=== PATIENT | female | born 1990 | race African-American/Black ===

== ENCOUNTER 2016-08-19 11:28 | Emergency (ER) | payer BC, MEDICAID ==
[~2016-08-19] VITALS: Ht 165.1 cm; Wt 80.7 kg
[~2016-08-19 11:28] MED LIST: ALBUTEROL2.5 MG/3 M INH; AUGMENTIN 875-1 EAC1 ORAL; CEPHALEXIN250 MG PO; CYCLOBENZAPRINE10 MG ORAL; FERROUS SULFAT325 MG ORAL; IBUPROFEN600 MG ORAL; KEFLEX500 MG ORAL; MECLIZINE HCL25 MG ORAL; METRONIDAZOLE500 MG ORAL; NAPROSYN500 M1 ORAL; NKM; PRENA1 PEARL S1 EACH PO; ROBITUSSIN COU118 M4 PO
[2016-08-19 12:09] VITALS: BP 112/72
[2016-08-19] MEDS ORDERED: Metoclopramide 10mg/2ml Inj IVP ONE (12:15)
[2016-08-19 12:44] LABS: APPEARANCE,URINE CLEAR; KETONES,URINE NEGATIVE (NEGATIVE); LEUKOCYTE ESTERASE ,URINE 1+ (NEGATIVE); NITRITE,URINE NEGATIVE (NEGATIVE); PH,URINE 7 (4.5-8.0); PROTEIN,URINE NEGATIVE (NEGATIVE); UROBILINOGEN,URINE NORMAL MG/DL (0.0-1.0)
[2016-08-19 12:47] LABS: BASOPHILS % (AUTO) 1.1 % (0.0-2.0); EOSINOPHILS % (AUTO) 0.9 % (0.0-3.0); LYMPHOCYTES % (AUTO) 33.9 % (20.0-45.0); MEAN CORPUSCULAR HEMOGLOBIN 29.2 PG (27.0-31.0); MEAN CORPUSCULAR HGB CONC 33.3 G/DL (32.0-36.0); MEAN CORPUSCULAR VOLUME 88 FL (80-99); MEAN PLATELET VOLUME 12.3 FL (6.5-10.1); MONOCYTES % (AUTO) 9.1 % (1.0-10.0); PLATELET COUNT 196 K/UL (150-450); RED BLOOD COUNT 5.01 M/UL (4.20-5.40); RED CELL DISTRIBUTION WIDTH 11.8 % (11.6-14.8); WHITE BLOOD COUNT 6.1 K/UL (4.8-10.8)
[2016-08-19 12:52] LABS: BACTERIA,URINE FEW /HPF; SQUAMOUS EPITHELIAL CELL,UR FEW /LPF (NONE/OCC)
[2016-08-19 12:57] VITALS: BP 112/72
[2016-08-19 13:02] LABS: ALANINE AMINOTRANSFERASE 15 U/L (3-33); ALBUMIN/GLOBULIN RATIO 1.2 (1.0-2.7); ANION GAP 14 (5-15); ASPARTATE AMINO TRANSFERASE 18 U/L (5-40); CALCIUM 9.8 mg/dL (8.6-10.2); CARBON DIOXIDE 27 mEQ/L (20-30); CHLORIDE 98 mEQ/L (98-107); CREATININE 0.9 mg/dL (0.5-0.9); GLOMERULAR FILTRATION RATE > 60 mL/min (>60); HEMOLYSIS 14; POTASSIUM 3.8 mEQ/L (3.4-4.9); SODIUM 139 mEQ/L (135-145); TOTAL PROTEIN 7.5 g/dL (6.6-8.7)
--- NOTE | 2016-08-19 13:52 | Emergency Room Report ---
History of Present Illness General Chief Complaint: Nausea Source: Patient Present Illness HPI 26-year-old female presents ED. States for one week she's been feeling dizzy and lightheaded with nausea and vomiting. Denies any headache. Denies any fevers or chills. Denies any dysuria or hematuria. Patient notes history of vertigo but denies any room spinning sensation at this time. No aggravating relieving factors. Denies any other associated symptoms Allergies: Coded Allergies: No Known Allergies (Unverified , 05/26/16) Patient History Past Medical History: asthma Past Surgical History: none Pertinent Family History: none Social History: Denies: alcohol use, drug use, smoking Now: No Immunizations: UTD Reviewed Nursing Documentation: PMH: Agreed, PSxH: Agreed Nursing Documentation-PMH Hx Asthma: Yes Review of Systems All Other Systems: negative except mentioned in HPI Physical Exam Vital Signs Date Time Temp Pulse Resp B/P Pulse Ox O2 Delivery O2 Flow Rate FiO2 08/19/16 12:08 97.7 65 20 112/72 98 Room Air Sp02 EP Interpretation: reviewed, normal General Appearance: no apparent distress, alert, GCS 15, non-toxic Head: normocephalic, atraumatic Eyes: bilateral eye PERRL, bilateral eye normal inspection ENT: hearing grossly normal, normal pharynx, no angioedema, normal voice Neck: full range of motion, supple/symm/no masses Respiratory: chest non-tender, lungs clear, normal breath sounds, speaking full sentences Cardiovascular #1: regular rate, rhythm, no edema Cardiovascular #2: 2+ carotid (R), 2+ carotid (L), 2+ radial (R), 2+ radial (L) , 2+ dorsalis pedis (R), 2+ dorsalis pedis (L) Gastrointestinal: normal bowel sounds, non tender, soft, non-distended, no guarding, no rebound Rectal: deferred Genitourinary: normal inspection, no CVA tenderness Musculoskeletal: back normal, gait/station normal, normal range of motion, non- tender Neurologic: alert, oriented x3, responsive, motor strength/tone normal, sensory intact, speech normal Psychiatric: judgement/insight normal, memory normal, mood/affect normal, no suicidal/homicidal ideation Reflexes: 3+ bicep (R), 3+ bicep (L), 3+ tricep (R), 3+ tricep (L), 3+ knee (R) , 3+ knee (L) Skin: normal color, no rash, warm/dry, well hydrated Lymphatic: no adenopathy Medical Decision Making Diagnostic Impression: Primary Impression: Dizziness ER Course Hospital Course 26-year-old female presents ED complaining of dizziness and nausea times one week Differential diagnoses include: tension headache, migraine, dehydration, UTI Clinical course Patient placed on stretcher. After initial history and physical I ordered labs , IV fluids, Reglan, tylenol Before workup could be completed, patient pulled out IV and left. Stating that she needed to take her daughter home was with her at bedside. Labs-no leukocytosis, hemoglobin/hematocrit stable, electrolytes okay, UA negative Diagnosis- dizziness patient eloped from ER Labs Test 08/19/16 11:10 08/19/16 11:15 Urine Color Pale yellow Urine Appearance Clear Urine pH 7 (4.5-8.0) Urine Specific [place] 1.010 (1.005-1.035) Urine Protein Negative (NEGATIVE) Urine Glucose (UA) Negative (NEGATIVE) Urine Ketones Negative (NEGATIVE) Urine Occult Blood 4+ (NEGATIVE) Urine Nitrite Negative (NEGATIVE) Urine Bilirubin Negative (NEGATIVE) Urine Urobilinogen Normal MG/DL (0.0-1.0) Urine Leukocyte Esterase 1+ (NEGATIVE) Urine RBC 5-10 /HPF (0 - 2) Urine WBC 2-4 /HPF (0 - 2) Urine Squamous Epithelial Cells Few /LPF (NONE/OCC) Urine Bacteria Few /HPF (NONE) Urine HCG, Qualitative Negative White Blood Count 6.1 K/UL (4.8-10.8) Red Blood Count 5.01 M/UL (4.20-5.40) Hemoglobin 14.6 G/DL (12.0-16.0) Hematocrit 43.8 % (37.0-47.0) Mean Corpuscular Volume 88 FL (80-99) Mean Corpuscular Hemoglobin 29.2 PG (27.0-31.0) Mean Corpuscular Hemoglobin Concent 33.3 G/DL (32.0-36.0) Red Cell Distribution Width 11.8 % (11.6-14.8) Platelet Count 196 K/UL (150-450) Mean Platelet Volume 12.3 FL (6.5-10.1) Neutrophils (%) (Auto) 55.0 % (45.0-75.0) Lymphocytes (%) (Auto) 33.9 % (20.0-45.0) Monocytes (%) (Auto) 9.1 % (1.0-10.0) Eosinophils (%) (Auto) 0.9 % (0.0-3.0) Basophils (%) (Auto) 1.1 % (0.0-2.0) Sodium Level 139 mEQ/L (135-145) Potassium Level 3.8 mEQ/L (3.4-4.9) Chloride Level 98 mEQ/L (98-107) Carbon Dioxide Level 27 mEQ/L (20-30) Anion Gap 14 (5-15) Blood Urea Nitrogen 11 mg/dL (7-23) Creatinine 0.9 mg/dL (0.5-0.9) Estimat Glomerular Filtration Rate > 60 mL/min (>60) Glucose Level 93 mg/dL (74-106) Calcium Level 9.8 mg/dL (8.6-10.2) Total Bilirubin 0.2 mg/dL (0.0-1.2) Aspartate Amino Transf (AST/SGOT) 18 U/L (5-40) Alanine Aminotransferase (ALT/SGPT) 15 U/L (3-33) Alkaline Phosphatase 85 U/L (35-104) Total Protein 7.5 g/dL (6.6-8.7) Albumin 4.1 g/dL (3.5-5.2) Globulin 3.4 g/dL Albumin/Globulin Ratio 1.2 (1.0-2.7) Last Vital Signs Date Time Temp Pulse Resp B/P Pulse Ox O2 Delivery O2 Flow Rate FiO2 08/19/16 12:57 97.7 20 112/72 98 Room Air 08/19/16 12:08 65 Status: unchanged Disposition: ELOPED Condition: Unknown Referrals: [facility] (PCP) ADOLPH CASTELAN M.D. Aug 19, 2016 13:52
== END 2016-08-19 13:50 | disposition left against medical advice (07) ==
LOC: EMR 12:43
DX: R42 Dizziness and giddiness (principal); J45.909 Unspecified asthma, uncomplicated
CPT/HCPCS: 36415; 80053; 81003; 81025; 85025; 96374; 96375; 99284; J2765

== ENCOUNTER 2016-08-30 18:05 | Emergency (ER) | payer MEDICAID ==
[~2016-08-30] VITALS: Ht 165.1 cm; Wt 95.3 kg
[2016-08-30 18:37] VITALS: BP 110/58
[2016-08-30 18:57] LABS: APPEARANCE,URINE CLEAR; KETONES,URINE NEGATIVE (NEGATIVE); LEUKOCYTE ESTERASE ,URINE 1+ (NEGATIVE); NITRITE,URINE NEGATIVE (NEGATIVE); PH,URINE 6 (4.5-8.0); PROTEIN,URINE NEGATIVE (NEGATIVE); UROBILINOGEN,URINE NORMAL MG/DL (0.0-1.0)
[2016-08-30 19:30] LABS: BACTERIA,URINE FEW /HPF; SQUAMOUS EPITHELIAL CELL,UR FEW /LPF (NONE/OCC); WBC,URINE 0-2 /HPF (0 - 2)
[2016-08-30] MEDS ORDERED: PRENATAL COMPL1 EAC1 PO (19:38)
[2016-08-30 19:43] VITALS: BP_SYST 110; BP_SYST 116; BP_DIAS 58; BP_DIAS 62
--- NOTE | 2016-08-30 22:58 | Emergency Room Report ---
History of Present Illness General Chief Complaint: Female Urogenital Problems Source: Patient Present Illness [facility] The patient is a 26-year-old female presenting for possible urinary tract infection. The patient denies any vaginal pain or dysuria but does admit to increased urinary frequency. The patient states that she was supposed to start her period 2 days prior but has not. The patient denies any other symptoms including nausea, vomiting, abdominal pain, flank pain, fever, chills, vaginal DC Allergies: Coded Allergies: No Known Allergies (Unverified , 05/26/16) Patient History Past Medical History: see triage record Pertinent Family History: none Reviewed Nursing Documentation: PMH: Agreed, PSxH: Agreed Nursing Documentation-PMH Past Medical History: No Stated History Hx Asthma: Yes Review of Systems All Other Systems: negative except mentioned in HPI Physical Exam Vital Signs Date Time Temp Pulse Resp B/P Pulse Ox O2 Delivery O2 Flow Rate FiO2 08/30/16 18:29 98.1 80 16 110/58 99 Room Air Sp02 EP Interpretation: reviewed, normal General Appearance: no apparent distress, alert, GCS 15, non-toxic Head: normocephalic, atraumatic Eyes: bilateral eye PERRL, bilateral eye normal inspection ENT: hearing grossly normal, normal pharynx, no angioedema, normal voice Neck: full range of motion, supple/symm/no masses Gastrointestinal: normal bowel sounds, non tender, soft, non-distended, no guarding, no rebound Genitourinary: normal inspection, no CVA tenderness Musculoskeletal: back normal, gait/station normal, normal range of motion, non- tender Neurologic: alert, oriented x3, responsive, motor strength/tone normal, sensory intact, speech normal Psychiatric: judgement/insight normal, memory normal, mood/affect normal, no suicidal/homicidal ideation Skin: normal color, no rash, warm/dry, well hydrated Lymphatic: no adenopathy Medical Decision Making PA Attestation Dr. Balderas is my supervising physician. Patient management was discussed with my supervising physician Diagnostic Impression: Primary Impression: ER Course The patient is a 26-year-old female presenting for possible urinary tract infection. Differential diagnosis considered but not limited to: UTI, vaginitis, pyelonephritis, PID, PE: Vitals WNL. NAD. Abdomen: Normal appearance. Non distended. No ecchymosis. Normal BS. Non TTP. No McBurney point tenderness. No guarding. No CVA tenderness Urinalysis is unremarkable. Positive The patient is informed of this result and needs to followup with [facility]. Patient is given a prescription for vitamins. ER precautions given Laboratory Tests Test 08/30/16 18:40 Urine Color Pale yellow Urine Appearance Clear Urine pH 6 (4.5-8.0) Urine Specific [place] 1.020 (1.005-1.035) Urine Protein Negative (NEGATIVE) Urine Glucose (UA) Negative (NEGATIVE) Urine Ketones Negative (NEGATIVE) Urine Occult Blood 3+ (NEGATIVE) H Urine Nitrite Negative (NEGATIVE) Urine Bilirubin Negative (NEGATIVE) Urine Urobilinogen Normal MG/DL (0.0-1.0) Urine Leukocyte Esterase 1+ (NEGATIVE) H Urine RBC 2-4 /HPF (0 - 2) H Urine WBC 0-2 /HPF (0 - 2) Urine Squamous Epithelial Cells Few /LPF (NONE/OCC) Urine Bacteria Few /HPF (NONE) Urine HCG, Qualitative Positive Lab Results Impression Urinalysis is unremarkable. Positive Last Vital Signs Date Time Temp Pulse Resp B/P Pulse Ox O2 Delivery O2 Flow Rate FiO2 08/30/16 19:43 98.1 81 16 110/58 99 Room Air Status: improved Disposition: HOME, SELF-CARE Condition: Improved Scripts Pnv Cmb#21/Iron/Folic Acid ( COMPLETE CAPLET) 1 Each Tablet 1 EACH PO DAILY, #30 TAB Prov: MARCY PINEDO 08/30/16 Referrals: [facility] (PCP) Patient Instructions: First Trimester of Additional Instructions: I discussed my findings with the patient. All questions and concerns have been answered. Treatment and medication compliance have been addressed. I advised the patient that they need to follow up with PMD in 3-5 days. Return to ED if symptoms worsen, new symptoms arise, or if needed for any reason. Patient verbalized understanding of discharge instructions. The patient is advised she needs to followup with [facility] MARCY PINEDO Aug 30, 2016 22:58
== END 2016-08-30 19:45 | disposition home or self-care (01) ==
LOC: EMR 18:50
DX: Z33.1 Pregnant state, incidental (principal); J45.909 Unspecified asthma, uncomplicated
CPT/HCPCS: 81003; 81025; 99283

== ENCOUNTER 2016-09-02 15:09 | Emergency (ER) | payer MEDICAID ==
[~2016-09-02] VITALS: Ht 167.6 cm; Wt 97.1 kg
[~2016-09-02 15:09] MED LIST changes: +PRENATAL COMPL1 EAC1 PO
--- NOTE | 2016-09-02 16:14 | Emergency Room Report ---
History of Present Illness General Chief Complaint: Abdominal Pain Source: Patient Present Illness HPI 26-year-old female presents to the emergency department complaining of abdominal pain with continued spotting since August 28. Patient states that she was told she was by urine test here in the emergency department last week. Patient has not been able to followup with [facility]. Patient states over the course of today she has had progressive abdominal pain with nausea. Patient reports right sided abdominal tenderness. denies fall or trauma. Patient reports lower abdominal cramping. Patient denies fevers or chills. Denies CP, Palpitations, LOC, AMS, dizziness, Changes in Vision, Sensation, paresthesias, or a sudden severe headache. Allergies: Coded Allergies: No Known Allergies (Unverified , 09/02/16) Patient History Past Medical History: see triage record Past Surgical History: none Pertinent Family History: none Last Menstrual Period: n/a Now: Yes : 3 Para: 1 Reviewed Nursing Documentation: PMH: Agreed, PSxH: Agreed Nursing Documentation-PMH Past Medical History: No History, Except For Hx Asthma: Yes Review of Systems All Other Systems: negative except mentioned in HPI Physical Exam Vital Signs Date Time Temp Pulse Resp B/P Pulse Ox O2 Delivery O2 Flow Rate FiO2 09/02/16 15:23 98.1 64 16 119/82 99 Room Air Sp02 EP Interpretation: reviewed, normal General Appearance: no apparent distress, alert, GCS 15, non-toxic Head: normocephalic, atraumatic Eyes: bilateral eye PERRL, bilateral eye normal inspection ENT: hearing grossly normal, normal pharynx, no angioedema, normal voice Neck: full range of motion, supple/symm/no masses Respiratory: chest non-tender, lungs clear, normal breath sounds, speaking full sentences Cardiovascular #1: regular rate, rhythm, no edema Gastrointestinal: normal bowel sounds, non tender, soft, no guarding, no rebound, other - PT Tenderness is Right adenexal no appreciable abdominal TTP Rectal: deferred Genitourinary: normal inspection, no CVA tenderness, other - right adenexal TTP Musculoskeletal: back normal, gait/station normal, normal range of motion, non- tender Neurologic: alert, oriented x3, responsive, motor strength/tone normal, sensory intact, speech normal Psychiatric: judgement/insight normal, memory normal, mood/affect normal, no suicidal/homicidal ideation Skin: normal color, no rash, warm/dry, well hydrated Lymphatic: no adenopathy Medical Decision Making PA Attestation Dr. jones is my supervising Physician whom patient management has been discussed with. Diagnostic Impression: Primary Impression: Ectopic Qualified Codes: O00.20 - Ovarian without intrauterine Additional Impression: UTI ER Course 26-year-old female presents to the emergency department complaining of abdominal pain with continued spotting since August 28. Patient states that she was told she was by urine test here in the emergency department last week. Patient has not been able to followup with MEDICAL STAFF COORDINATOR. Patient states over the course of today she has had progressive abdominal pain with nausea. Patient reports right sided abdominal tenderness. denies fall or trauma. Patient reports lower abdominal cramping. Patient denies fevers or chills. Ddx considered but are not limited to: Fibroid, ectopic , Fibroid, Spontaneous . Vital signs: are WNL, pt. is afebrile H&PE are most consistent with: possible ectopic ORDERS: -Urine hcg- Positive -serum Hcg Quant: 2,069 - Blood/RH type and screen- see attached labs : (B Negative) -Pelvic US complete- Right Adnexal extrauterine structure with yolk sack -- indicating ectopic of the right ovary, no IUP per official radiology report. ED INTERVENTIONS: -RhoGam 1500 IU IM once. OBGYN CONSULT: Dr. Evans who recommended IM Methotrexate and follow up with OBGYN for repeat hcg in 3-5 days. - Methotrexate IM 100mg DISCHARGE: At this time pt. is stable for d/c to home. Will provide printed patient care instructions, and any necessary prescriptions. Care plan and follow up instructions have been discussed with the patient prior to discharge. Labs Test 09/02/16 15:28 09/02/16 15:55 09/02/16 16:41 09/02/16 18:40 Urine HCG, Qualitative Positive Urine Color Pale yellow Urine Appearance Clear Urine pH 6.5 (4.5-8.0) Urine Specific [place] 1.015 (1.005-1.035) Urine Protein Negative (NEGATIVE) Urine Glucose (UA) Negative (NEGATIVE) Urine Ketones Negative (NEGATIVE) Urine Occult Blood 4+ (NEGATIVE) Urine Nitrite Negative (NEGATIVE) Urine Bilirubin Negative (NEGATIVE) Urine Urobilinogen Normal MG/DL (0.0-1.0) Urine Leukocyte Esterase 3+ (NEGATIVE) Urine RBC 10-15 /HPF (0 - 2) Urine WBC 5-10 /HPF (0 - 2) Urine Squamous Epithelial Cells Moderate /LPF (NONE/OCC) Urine Amorphous Sediment Few /LPF (NONE) Urine Bacteria Moderate /HPF (NONE) Sodium Level 138 mEQ/L (135-145) Potassium Level 3.7 mEQ/L (3.4-4.9) Chloride Level 98 mEQ/L (98-107) Carbon Dioxide Level 23 mEQ/L (20-30) Anion Gap 17 (5-15) Blood Urea Nitrogen 6 mg/dL (7-23) Creatinine 0.8 mg/dL (0.5-0.9) Estimat Glomerular Filtration Rate > 60 mL/min (>60) Glucose Level 110 mg/dL (74-106) Calcium Level 9.2 mg/dL (8.6-10.2) Human Chorionic Gonadotropin, Quant 2063 mIU/mL White Blood Count 5.1 K/UL (4.8-10.8) Red Blood Count 4.51 M/UL (4.20-5.40) Hemoglobin 14.0 G/DL (12.0-16.0) Hematocrit 39.5 % (37.0-47.0) Mean Corpuscular Volume 88 FL (80-99) Mean Corpuscular Hemoglobin 31.0 PG (27.0-31.0) Mean Corpuscular Hemoglobin Concent 35.4 G/DL (32.0-36.0) Red Cell Distribution Width 11.7 % (11.6-14.8) Platelet Count 175 K/UL (150-450) Mean Platelet Volume 11.1 FL (6.5-10.1) Neutrophils (%) (Auto) 54.7 % (45.0-75.0) Lymphocytes (%) (Auto) 37.8 % (20.0-45.0) Monocytes (%) (Auto) 6.4 % (1.0-10.0) Eosinophils (%) (Auto) 0.4 % (0.0-3.0) Basophils (%) (Auto) 0.8 % (0.0-2.0) Prothrombin Time 10.4 SEC (9.30-11.50) Prothromb Time International Ratio 1.0 (0.9-1.1) Activated Partial Thromboplast Time 28 SEC (23-33) Last Vital Signs Date Time Temp Pulse Resp B/P Pulse Ox O2 Delivery O2 Flow Rate FiO2 09/02/16 15:23 98.1 64 16 119/82 99 Room Air Disposition: HOME, SELF-CARE Condition: Stable Scripts Nitrofurantoin Monohyd/M-Cryst* (MACROBID 100 MG*) 100 Mg Capsule 100 MG ORAL EVERY 12 HOURS for 5 Days, #10 CAP Prov: Mary Sifuentes 09/02/16 Hydrocodone Bit/Acetaminophen 5-325* (NORCO 5-325 TABLET*) 1 Each Tablet 1 TAB ORAL Q6HR Y for For Pain, #7 TAB Prov: Mary Sifuentes 09/02/16 Ibuprofen* (MOTRIN*) 600 Mg Tablet 600 MG ORAL THREE TIMES A DAY, #30 TAB 0 Refills Prov: Mary Sifuentes 09/02/16 Patient Instructions: Ectopic , [id number] Additional Instructions: Take medications as directed. Follow up with OBGYN in 3-5 days for repeat HCG, your Hcg quant today was 2, 069. Return sooner to ED if new symptoms occur, or current symptoms become worse. Do not drink alcohol, drive, or operate heavy machinery while taking [place] as this may cause drowsiness. - Please note that this Emergency Department Report was dictated using [employer] sales technology software, occasionally this can lead to erroneous entry secondary to interpretation by the dictation equipment. Mary Sifuentes Sep 02, 2016 16:14
[2016-09-02 16:45] LABS: APPEARANCE,URINE CLEAR; KETONES,URINE NEGATIVE (NEGATIVE); LEUKOCYTE ESTERASE ,URINE 3+ (NEGATIVE); NITRITE,URINE NEGATIVE (NEGATIVE); PH,URINE 6.5 (4.5-8.0); PROTEIN,URINE NEGATIVE (NEGATIVE); UROBILINOGEN,URINE NORMAL MG/DL (0.0-1.0)
[2016-09-02 16:51] LABS: ANION GAP 17 (5-15); CALCIUM 9.2 mg/dL (8.6-10.2); CARBON DIOXIDE 23 mEQ/L (20-30); CHLORIDE 98 mEQ/L (98-107); CREATININE 0.8 mg/dL (0.5-0.9); GLOMERULAR FILTRATION RATE > 60 mL/min (>60); HEMOLYSIS 7; POTASSIUM 3.7 mEQ/L (3.4-4.9); SODIUM 138 mEQ/L (135-145)
[2016-09-02 16:54] LABS: BASOPHILS % (AUTO) 0.8 % (0.0-2.0); EOSINOPHILS % (AUTO) 0.4 % (0.0-3.0); LYMPHOCYTES % (AUTO) 37.8 % (20.0-45.0); MEAN CORPUSCULAR HGB CONC 35.4 G/DL (32.0-36.0); MEAN CORPUSCULAR VOLUME 88 FL (80-99); MEAN PLATELET VOLUME 11.1 FL (6.5-10.1); MONOCYTES % (AUTO) 6.4 % (1.0-10.0); NEUTROPHILS % (AUTO) 54.7 % (45.0-75.0); PLATELET COUNT 175 K/UL (150-450); RED BLOOD COUNT 4.51 M/UL (4.20-5.40); RED CELL DISTRIBUTION WIDTH 11.7 % (11.6-14.8); WHITE BLOOD COUNT 5.1 K/UL (4.8-10.8)
[2016-09-02 17:00] LABS: AMORPHOUS SEDIMENT,UR FEW /LPF; BACTERIA,URINE MODERATE /HPF; SQUAMOUS EPITHELIAL CELL,UR MODERATE /LPF (NONE/OCC)
[2016-09-02 17:15] VITALS: BP 121/84
[2016-09-02] MEDS ORDERED: RHO (D) Immune Globulin 1500 Units IM ONE ×3 (18:00→18:45)
[2016-09-02] MEDS ORDERED: Methotrexate Sodium 50mg/2ml vial IM ONE (19:00)
[2016-09-02 19:03] LABS: PROTHROMBIN TIME 10.4 SEC (9.30-11.50)
[2016-09-02] MEDS ORDERED: NORCO 5-325 TA1 EAC1 ORAL (19:39)
[2016-09-02] MEDS ORDERED: IBUPROFEN600 MG ORAL (19:39)
[2016-09-02] MEDS ORDERED: NITROFURANTOIN100 M2 ORAL (19:40)
[2016-09-02 20:27] VITALS: BP_SYST 121; BP_SYST 124; BP_DIAS 84; BP_DIAS 87
--- NOTE | 2016-09-03 10:25 | Diagnostic Imaging Report ---
Indication: Pelvic pain, positive test Technique: Transabdominal and transvaginal images. Comparison: 02/25/2014 Findings: Uterus is retroverted, measures 10 cm length by 6.2 cm AP. Endometrium is thickened, measuring 24 mm in thickness. No intrauterine gestational sac is demonstrated. No myometrial abnormality. Adjacent to the right ovary is a cyst like structure with an echogenic rim and possible central yolk sac. The right ovary itself measures 4.2 cm in length. The left ovary measures 3.6 cm in length. There is trace free pelvic fluid, possibly with some debris Impression: Ectopic . No intrauterine demonstrated. Cystic structure in right adnexal region with possible surrounding decidual reaction and yolk sac Findings are suspicious for right adnexal ectopic Small amount free pelvic fluid, possibly physiologic or possibly some hemorrhage related to the above Markedly thickened endometrium Critical value findings discussed by phone by Dr. Ramirez with Dr. Malin at 1831 on 09/02/2016
== END 2016-09-02 20:28 | disposition home or self-care (01) ==
LOC: EMR 15:43 → EDBEDREQ 18:34 → EMR 20:28
DX: O00.90 Unspecified ectopic pregnancy without intrauterine pregnancy (principal); R93.8 Abnormal findings on diagnostic imaging of other specified body structures; N39.0 Urinary tract infection, site not specified; J45.909 Unspecified asthma, uncomplicated
CPT/HCPCS: 36415; 76801; 76830; 80048; 81003; 81025; 84702; 85025; 85610; 85730; 86850; 86900; 86901; 87086; 96372; 99284; J2791; J9260

== ENCOUNTER 2016-09-04 13:01 | Emergency (ER) | payer MEDICAID ==
[~2016-09-04] VITALS: Ht 165.1 cm; Wt 98.0 kg
[~2016-09-04 13:01] MED LIST changes: +NITROFURANTOIN100 M2 ORAL; +NORCO 5-325 TA1 EAC1 ORAL
[2016-09-04] MEDS ORDERED: ACETAMINOPHEN-1 EAC1 ORAL (13:28)
[2016-09-04] MEDS ORDERED: Tylenol #3 tab (300mg/30mg) ORAL ONE (13:30)
[2016-09-04 13:47] VITALS: BP 112/68
--- NOTE | 2016-09-05 07:04 | Emergency Room Report ---
History of Present Illness General Chief Complaint: Complications Source: Patient Present Illness HPI 26-year-old female presents to ED for evaluation. Patient was here 2 days ago for ectopic . Patient was given methotrexate injection and subsequently discharged. Patient was told to return to [facility] in 3-4 days to have repeat beta-hCG levels drawn. Patient is here today because she is also having some cramping pain. Noted spotting. Pain is 5/10. Nonradiating. No other aggravating or relieving factors. Patient states the pain is less than her previous visit. Patient states that she was prescribed [place] and states it is too strong. Patient would like a different prescription for pain. No other aggravating or relieving factors. Denies any other associated symptoms Allergies: Coded Allergies: No Known Allergies (Unverified , 09/02/16) Patient History Past Medical History: asthma Past Surgical History: none Pertinent Family History: none Social History: Denies: alcohol use, drug use, smoking Last Menstrual Period: 07/21/16 Now: No : 3 Para: 1 Immunizations: UTD Reviewed Nursing Documentation: PMH: Agreed, PSxH: Agreed Nursing Documentation-PMH Past Medical History: No Stated History Hx Asthma: Yes Review of Systems All Other Systems: negative except mentioned in HPI Physical Exam Vital Signs Date Time Temp Pulse Resp B/P Pulse Ox O2 Delivery O2 Flow Rate FiO2 09/04/16 13:12 97.9 67 16 112/68 100 Room Air Sp02 EP Interpretation: reviewed, normal General Appearance: no apparent distress, alert, GCS 15, non-toxic Head: normocephalic, atraumatic Eyes: bilateral eye PERRL, bilateral eye normal inspection ENT: hearing grossly normal, normal pharynx, no angioedema, normal voice Neck: full range of motion, supple/symm/no masses Respiratory: chest non-tender, lungs clear, normal breath sounds, speaking full sentences Cardiovascular #1: regular rate, rhythm, no edema Cardiovascular #2: 2+ carotid (R), 2+ carotid (L), 2+ radial (R), 2+ radial (L) , 2+ dorsalis pedis (R), 2+ dorsalis pedis (L) Gastrointestinal: normal bowel sounds, non tender, soft, non-distended, no guarding, no rebound Rectal: deferred Genitourinary: normal inspection, no CVA tenderness Musculoskeletal: back normal, gait/station normal, normal range of motion, non- tender Neurologic: alert, oriented x3, responsive, motor strength/tone normal, sensory intact, speech normal Psychiatric: judgement/insight normal, memory normal, mood/affect normal, no suicidal/homicidal ideation Reflexes: 3+ bicep (R), 3+ bicep (L), 3+ tricep (R), 3+ tricep (L), 3+ knee (R) , 3+ knee (L) Skin: normal color, no rash, warm/dry, well hydrated Lymphatic: no adenopathy Medical Decision Making Diagnostic Impression: Primary Impression: Ectopic Qualified Codes: O00.90 - Unspecified ectopic without intrauterine ER Course 26-year-old female presents to ED with cramping pain and spotting after receiving methotrexate injection. Status post ectopic Differential-ongoing miscarriage, adverse reaction to medication, ectopic Patient placed on stretcher. After initial history physical exam reveals a young female in no acute distress. Abdominal exam unremarkable. I was supervising physician when patient was here 2 days ago. Discussed case with Dr. Evans to give methotrexate. I explained to the patient that it is too early to repeat blood levels patient should followup with [facility]. Patient agrees. Patient is requesting a different pain medication at the [place] is too strong. We will prescribe Tylenol #3 instead Given Tylenol #3 in ED with pain improved Diagnosis-ectopic Stable and discharged to home with prescription for Tylenol #3. Followup with [facility] for repeat beta hCG levels. Return to ED symptoms recur or worsen Last Vital Signs Date Time Temp Pulse Resp B/P Pulse Ox O2 Delivery O2 Flow Rate FiO2 09/04/16 13:47 97.9 16 112/68 100 Room Air 09/04/16 13:12 67 Status: improved Disposition: HOME, SELF-CARE Condition: Stable Scripts Acetaminophen With Codeine (T#3) (TYLENOL #3 TAB*) Y Tab 1 TAB ORAL Q8H Y for For Pain, #20 TAB Prov: ADOLPH CASTELAN M.D. 09/04/16 Referrals: NON PHYSICIAN (PCP) Patient Instructions: Methotrexate injection ADOLPH CASTELAN M.D. Sep 05, 2016 07:04
== END 2016-09-04 14:00 | disposition home or self-care (01) ==
LOC: EMR 13:52
DX: O00.90 Unspecified ectopic pregnancy without intrauterine pregnancy (principal); J45.909 Unspecified asthma, uncomplicated
CPT/HCPCS: 99283

== ENCOUNTER 2016-09-30 12:02 | Emergency (ER) | payer MEDICAID ==
[~2016-09-30] VITALS: Ht 167.6 cm; Wt 94.3 kg
[~2016-09-30 12:02] MED LIST changes: +ACETAMINOPHEN-1 EAC1 ORAL
[2016-09-30 12:48] LABS: APPEARANCE,URINE CLEAR; KETONES,URINE NEGATIVE (NEGATIVE); LEUKOCYTE ESTERASE ,URINE 2+ (NEGATIVE); NITRITE,URINE NEGATIVE (NEGATIVE); PH,URINE 7 (4.5-8.0); PROTEIN,URINE NEGATIVE (NEGATIVE); UROBILINOGEN,URINE NORMAL MG/DL (0.0-1.0)
[2016-09-30] MEDS ORDERED: Fluconazole 100mg tab ORAL ONE (13:00)
[2016-09-30 13:09] LABS: BACTERIA,URINE FEW /HPF; RBC,URINE 0-2 /HPF (0 - 2); SQUAMOUS EPITHELIAL CELL,UR MANY /LPF (NONE/OCC)
--- NOTE | 2016-09-30 13:11 | Emergency Room Report ---
History of Present Illness General Chief Complaint: Female Urogenital Problems Source: Patient Present Illness HPI 26 YO Female presents to the ED c/o vaginal irritation/itching s/p returning from [place] and also finished a recent course of abx for UTI.pt also has several insect bites that are itchy on UE and LE. no fevers, chills, malaise. She denies abdominal pain, lesions elsewhere, vaginal discharge, hematuria. Patient reports mild dysuria. Denies low back pain. Denies CP, Palpitations, LOC, AMS, dizziness, Changes in Vision, Sensation, paresthesias, or a sudden severe headache. Allergies: Coded Allergies: No Known Allergies (Unverified , 09/02/16) Patient History Past Medical History: see triage record Past Surgical History: none Pertinent Family History: none Last Menstrual Period: 09/16/16 Now: No Reviewed Nursing Documentation: PMH: Agreed, PSxH: Agreed Nursing Documentation-PMH Past Medical History: No Stated History Hx Asthma: Yes Review of Systems All Other Systems: negative except mentioned in HPI Physical Exam Vital Signs Date Time Temp Pulse Resp B/P Pulse Ox O2 Delivery O2 Flow Rate FiO2 09/30/16 12:20 97.9 69 18 115/64 100 Room Air Sp02 EP Interpretation: reviewed, normal General Appearance: no apparent distress, alert, GCS 15, non-toxic Head: normocephalic, atraumatic Eyes: bilateral eye PERRL, bilateral eye normal inspection ENT: hearing grossly normal, normal pharynx, no angioedema, normal voice Neck: full range of motion, supple/symm/no masses Respiratory: chest non-tender, lungs clear, normal breath sounds, speaking full sentences Cardiovascular #1: regular rate, rhythm, no edema Gastrointestinal: normal bowel sounds, non tender, soft, no guarding, no rebound Rectal: deferred Genitourinary: normal inspection, no CVA tenderness Musculoskeletal: back normal, gait/station normal, normal range of motion, non- tender Neurologic: alert, oriented x3, responsive, motor strength/tone normal, sensory intact, speech normal Psychiatric: judgement/insight normal, memory normal, mood/affect normal Skin: normal color, no rash, warm/dry, well hydrated Lymphatic: no adenopathy Medical Decision Making PA Attestation Dr. Chavarria is my supervising Physician whom patient management has been discussed with. Diagnostic Impression: Primary Impression: Vaginitis Qualified Codes: N76.0 - Acute vaginitis Additional Impression: Insect bite Qualified Codes: W57.XXXA - Bitten or stung by nonvenomous insect and other nonvenomous arthropods, initial encounter ER Course Pt. presents to the ED c/o vaginal irritation/itching s/p returning from [place] and also finished a recent course of abx for UTI.pt also has several insect bites that are itchy on UE and LE. no fevers, chills, malaise. Ddx considered but are not limited to UTi , Pyelo, STI, Stone, Cystitis Vital signs: are WNL, pt. is afebrile H&PE are most consistent with yeast vaginitis ORDERS: - UA labs are attached-- no acute infection evidence of few bacteria from contamination. ED INTERVENTIONS: -Diflucan 150mg PO DISCHARGE: At this time pt. is stable for d/c to home. Will provide printed patient care instructions, and any necessary prescriptions. Care plan and follow up instructions have been discussed with the patient prior to discharge. Labs Test 09/30/16 12:30 Urine Color Pale yellow Urine Appearance Clear Urine pH 7 (4.5-8.0) Urine Specific [place] 1.015 (1.005-1.035) Urine Protein Negative (NEGATIVE) Urine Glucose (UA) Negative (NEGATIVE) Urine Ketones Negative (NEGATIVE) Urine Occult Blood Negative (NEGATIVE) Urine Nitrite Negative (NEGATIVE) Urine Bilirubin Negative (NEGATIVE) Urine Urobilinogen Normal MG/DL (0.0-1.0) Urine Leukocyte Esterase 2+ (NEGATIVE) Urine RBC 0-2 /HPF (0 - 2) Urine WBC 2-4 /HPF (0 - 2) Urine Squamous Epithelial Cells Many /LPF (NONE/OCC) Urine Bacteria Few /HPF (NONE) Urine HCG, Qualitative Negative Last Vital Signs Date Time Temp Pulse Resp B/P Pulse Ox O2 Delivery O2 Flow Rate FiO2 09/30/16 12:20 97.9 69 18 115/64 100 Room Air Disposition: HOME, SELF-CARE Condition: Stable Scripts Hydrocortisone 2% Cream (ANTI-ITCH 2% CREAM) Y Cr 1 APPLIC TP BID, #28 GM Prov: Mary Sifuentes 09/30/16 Fluconazole (FLUCONAZOLE) 100 Mg Tablet 100 MG ORAL DAILY for 3 Days, #3 TAB 0 Refills Prov: Mary Sifuentes 09/30/16 Patient Instructions: Vaginitis Additional Instructions: Take medications as directed. Follow up with PCP in 3-5 days Return sooner to ED if new symptoms occur, or current symptoms become worse. - Please note that this Emergency Department Report was dictated using [employer] and acquisitions manager technology software, occasionally this can lead to erroneous entry secondary to interpretation by the dictation equipment. Mary Sifuentes September 30, 2016 13:11
[2016-09-30] MEDS ORDERED: ANTI-ITCH28 G1 TP (13:12)
[2016-09-30] MEDS ORDERED: FLUCONAZOLE100 MG ORAL (13:12)
[2016-09-30 13:25] VITALS: BP 124/78
== END 2016-09-30 13:30 | disposition home or self-care (01) ==
LOC: EMR 13:30
DX: N76.0 Acute vaginitis (principal); S40.869A Insect bite (nonvenomous) of unspecified upper arm, initial encounter; S80.869A Insect bite (nonvenomous), unspecified lower leg, initial encounter; W57.XXXA Bitten or stung by nonvenomous insect and other nonvenomous arthropods, initial encounter; Y92.89 Other specified places as the place of occurrence of the external cause
CPT/HCPCS: 81003; 81025; 99283

== ENCOUNTER 2016-12-20 18:40 | Emergency (ER) | payer MEDICAID ==
[~2016-12-20] VITALS: Ht 167.6 cm; Wt 95.7 kg
[~2016-12-20 18:40] MED LIST changes: +ANTI-ITCH28 G1 TP; +FLUCONAZOLE100 MG ORAL
[2016-12-20 19:20] VITALS: BP 124/82
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
[2016-12-20] MEDS ORDERED: IBUPROFEN600 MG ORAL (20:15)
[2016-12-20] MEDS ORDERED: ZYRTEC10 MG ORAL (20:15)
[2016-12-20] MEDS ORDERED: BENADRYL ALLERG25 M1 PO (20:15)
[2016-12-20 20:35] VITALS: BP 127/80
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
== END 2016-12-20 20:35 | disposition home or self-care (01) ==
LOC: EMR 19:32
DX: R07.0 Pain in throat (principal); S00.83XA Contusion of other part of head, initial encounter; R09.81 Nasal congestion; J45.909 Unspecified asthma, uncomplicated; Y04.2XXA Assault by strike against or bumped into by another person, initial encounter; Y92.9 Unspecified place or not applicable
CPT/HCPCS: 70486; 99284

== ENCOUNTER 2017-03-04 23:48 | Emergency (ER) | payer OTHER, MEDICAID ==
[~2017-03-04] VITALS: Ht 167.6 cm; Wt 93.0 kg
[~2017-03-04 23:48] MED LIST changes: +BENADRYL ALLERG25 M1 PO; +ZYRTEC10 MG ORAL
[2017-03-05 00:16] VITALS: BP 122/78
[2017-03-05 00:42] LABS: BASOPHILS % (AUTO) 1.2 % (0.0-2.0); EOSINOPHILS % (AUTO) 0.8 % (0.0-3.0); LYMPHOCYTES % (AUTO) 48.6 % (20.0-45.0); MEAN CORPUSCULAR HEMOGLOBIN 29.7 PG (27.0-31.0); MEAN CORPUSCULAR VOLUME 90 FL (80-99); MEAN PLATELET VOLUME 12.5 FL (6.5-10.1); MONOCYTES % (AUTO) 7.3 % (1.0-10.0); NEUTROPHILS % (AUTO) 42.1 % (45.0-75.0); PLATELET COUNT 185 K/UL (150-450); RED BLOOD COUNT 4.73 M/UL (4.20-5.40); RED CELL DISTRIBUTION WIDTH 11.2 % (11.6-14.8); WHITE BLOOD COUNT 5.4 K/UL (4.8-10.8)
[2017-03-05 00:56] LABS: ALANINE AMINOTRANSFERASE 13 U/L (3-33); ALBUMIN/GLOBULIN RATIO 1.3 (1.0-2.7); ANION GAP 10 (5-15); ASPARTATE AMINO TRANSFERASE 14 U/L (5-40); CALCIUM 9.2 mg/dL (8.6-10.2); CARBON DIOXIDE 29 mEQ/L (20-30); CHLORIDE 101 mEQ/L (98-107); GLOMERULAR FILTRATION RATE > 60 mL/min (>60); HEMOLYSIS 4; KETONES,URINE NEGATIVE (NEGATIVE); LEUKOCYTE ESTERASE ,URINE 2+ (NEGATIVE); LIPASE 29 U/L (< 60); NITRITE,URINE NEGATIVE (NEGATIVE); PH,URINE 6 (4.5-8.0); POTASSIUM 3.9 mEQ/L (3.4-4.9); PROTEIN,URINE NEGATIVE (NEGATIVE); SODIUM 140 mEQ/L (135-145); UROBILINOGEN,URINE NORMAL MG/DL (0.0-1.0)
[2017-03-05 00:57] LABS: APPEARANCE,URINE SLIGHTLY CLOUDY; RBC,URINE 0-2 /HPF (0 - 2); SQUAMOUS EPITHELIAL CELL,UR MODERATE /LPF (NONE/OCC)
[2017-03-05 00:58] LABS: BACTERIA,URINE FEW /HPF
--- NOTE | 2017-03-05 01:05 | Emergency Room Report ---
History of Present Illness General Chief Complaint: Pain Source: Patient Present Illness HPI 27-year-old female, (1 miscarriage, one tubal ), presenting with left-sided flank pain for one day. Pain is intermittent, sharp, 5/10 severity. Denies any fever chills nausea vomiting diarrhea or constipation, no dysuria or hematuria, last menstrual period was January 30, patient states that she is 4 days late Denies any history of ovarian cysts Denies history of renal stones Allergies: Coded Allergies: No Known Allergies (Unverified , 09/02/16) Patient History Past Medical History: see triage record Past Surgical History: none Pertinent Family History: none Last Menstrual Period: Jan Reviewed Nursing Documentation: PMH: Agreed, PSxH: Agreed Nursing Documentation-PMH Hx Asthma: Yes Review of Systems All Other Systems: negative except mentioned in HPI Physical Exam Vital Signs Date Time Temp Pulse Resp B/P (MAP) Pulse Ox O2 Delivery O2 Flow Rate FiO2 03/04/17 23:56 97.9 64 18 107/70 100 Room Air Sp02 EP Interpretation: reviewed, normal General Appearance: normal inspection, well appearing, no apparent distress, alert, GCS 15, non-toxic, other - Calm, comfortable, nontoxic, not in pain Head: normocephalic, atraumatic Eyes: bilateral eye normal inspection, bilateral eye PERRL, bilateral eye EOMI ENT: normal ENT inspection, normal pharynx, normal voice, moist mucus membranes Neck: normal inspection, full range of motion, supple Respiratory: normal inspection, lungs clear, normal breath sounds, no respiratory distress, no retraction, no wheezing, speaking full sentences, chest symmetrical Cardiovascular #1: normal inspection, regular rate, rhythm, no edema, normal capillary refill Cardiovascular #2: 2+ radial (R), 2+ radial (L) Gastrointestinal: normal inspection, non tender, soft, non-distended, no guarding, other - Nontender all quadrants of the abdomen Genitourinary: no CVA tenderness Musculoskeletal: normal inspection, back normal, normal range of motion, non- tender Neurologic: normal inspection, alert, oriented x3, responsive, motor strength/ tone normal, sensory intact, normal gait, speech normal Psychiatric: normal inspection, judgement/insight normal, memory normal Skin: normal inspection, normal color, no rash, warm/dry, well hydrated, normal turgor Medical Decision Making Diagnostic Impression: Primary Impression: UTI (urinary tract infection) ER Course 27-year-old female with left-sided abdominal pain DDX: UTI/pyelo-, , ectopic , diverticulitis, gastritis, gastroenteritis At this time abdomen is soft nontender, patient does not appear to be in pain, will hold imaging for now Plan: Obtain labs, ua, ucx, ucg ER course: Patient has remained stable during ED stay. Patient not in pain, has not required any pain medication during ED stay UA positive Not Disposition: Patient is to be discharged to home with Keflex Patient is instructed to follow up with their primary care doctor within 5 days. Strict return precautions discussed with patient such as fever, chills, worsening/severe pain, nausea, vomiting, which may indicate severe illness. Patient verbalizes understanding and agrees with plan. Please note that this Emergency Department Report was dictated using [employer] stripper technology software, occasionally this can lead to erroneous entry secondary to interpretation by the dictation equipment Laboratory Tests Test 03/05/17 00:20 White Blood Count 5.4 K/UL (4.8-10.8) Red Blood Count 4.73 M/UL (4.20-5.40) Hemoglobin 14.0 G/DL (12.0-16.0) Hematocrit 42.5 % (37.0-47.0) Mean Corpuscular Volume 90 FL (80-99) Mean Corpuscular Hemoglobin 29.7 PG (27.0-31.0) Mean Corpuscular Hemoglobin Concent 33.0 G/DL (32.0-36.0) Red Cell Distribution Width 11.2 % (11.6-14.8) L Platelet Count 185 K/UL (150-450) Mean Platelet Volume 12.5 FL (6.5-10.1) H Neutrophils (%) (Auto) 42.1 % (45.0-75.0) L Lymphocytes (%) (Auto) 48.6 % (20.0-45.0) H Monocytes (%) (Auto) 7.3 % (1.0-10.0) Eosinophils (%) (Auto) 0.8 % (0.0-3.0) Basophils (%) (Auto) 1.2 % (0.0-2.0) Urine Color Pale yellow Urine Appearance Slightly cloudy Urine pH 6 (4.5-8.0) Urine Specific [place] 1.020 (1.005-1.035) Urine Protein Negative (NEGATIVE) Urine Glucose (UA) Negative (NEGATIVE) Urine Ketones Negative (NEGATIVE) Urine Occult Blood Negative (NEGATIVE) Urine Nitrite Negative (NEGATIVE) Urine Bilirubin Negative (NEGATIVE) Urine Urobilinogen Normal MG/DL (0.0-1.0) Urine Leukocyte Esterase 2+ (NEGATIVE) H Urine RBC 0-2 /HPF (0 - 2) Urine WBC 10-15 /HPF (0 - 2) H Urine Squamous Epithelial Cells Moderate /LPF (NONE/OCC) H Urine Bacteria Few /HPF (NONE) Urine HCG, Qualitative Negative Sodium Level 140 mEQ/L (135-145) Potassium Level 3.9 mEQ/L (3.4-4.9) Chloride Level 101 mEQ/L (98-107) Carbon Dioxide Level 29 mEQ/L (20-30) Anion Gap 10 (5-15) Blood Urea Nitrogen 14 mg/dL (7-23) Creatinine 1.0 mg/dL (0.5-0.9) H Estimate Glomerular Filtration Rate > 60 mL/min (>60) Glucose Level 85 mg/dL (74-106) Calcium Level 9.2 mg/dL (8.6-10.2) Total Bilirubin < 0.2 mg/dL (0.0-1.2) Aspartate Amino Transferase (AST) 14 U/L (5-40) Alanine Aminotransferase (ALT) 13 U/L (3-33) Alkaline Phosphatase 72 U/L (35-104) Total Protein 7.0 g/dL (6.6-8.7) Albumin 4.0 g/dL (3.5-5.2) Globulin 3.0 g/dL Albumin/Globulin Ratio 1.3 (1.0-2.7) Lipase 29 U/L (< 60) Human Chorionic Gonadotropin, Quant < 1 mIU/mL Last Vital Signs Date Time Temp Pulse Resp B/P (MAP) Pulse Ox O2 Delivery O2 Flow Rate FiO2 03/05/17 00:16 98.1 80 16 122/78 98 Room Air Disposition: HOME, SELF-CARE Condition: Improved Scripts Cephalexin* (KEFLEX*) 500 Mg Capsule 500 MG ORAL Q6H for 7 Days, #28 CAP 0 Refills Prov: Retino,Fidelia Valentin 03/05/17 Fidelia Doran M.D. Mar 05, 2017 01:05
[2017-03-05] MEDS ORDERED: KEFLEX500 MG ORAL (01:16)
[2017-03-05 01:25] VITALS: BP 124/76
[2017-03-05 01:27] VITALS: BP 124/76
== END 2017-03-05 01:27 | disposition home or self-care (01) ==
LOC: EMR 23:59
DX: N39.0 Urinary tract infection, site not specified (principal); J45.909 Unspecified asthma, uncomplicated
CPT/HCPCS: 36415; 80053; 81003; 81025; 83690; 84702; 85025; 87086; 99283

== ENCOUNTER 2017-06-17 18:12 | Emergency (ER) | payer OTHER, MEDICAID ==
[~2017-06-17] VITALS: Ht 167.6 cm; Wt 95.3 kg
[2017-06-17 19:10] LABS: APPEARANCE,URINE SLIGHTLY CLOUDY; BILIRUBIN, URINE NEGATIVE (NEGATIVE); COLOR,URINE PALE YELLOW; GLUCOSE, URINE (UA) NEGATIVE (NEGATIVE); KETONES,URINE NEGATIVE (NEGATIVE); LEUKOCYTE ESTERASE ,URINE 3+ (NEGATIVE); NITRITE,URINE NEGATIVE (NEGATIVE); PH,URINE 7 (4.5-8.0); PROTEIN,URINE NEGATIVE (NEGATIVE); UROBILINOGEN,URINE NORMAL MG/DL (0.0-1.0)
[2017-06-17] MEDS ORDERED: METRONIDAZOLE500 MG ORAL (19:23)
[2017-06-17 19:30] VITALS: BP 111/65
--- NOTE | 2017-06-17 22:07 | Emergency Room Report ---
History of Present Illness General Chief Complaint: Vaginal Source: Patient Present Illness HPI The patient is a 27-year-old female presenting for possible vaginal infection. She noticed white discharge and itching for the past 3 days. She denies any pain. She denies other symptoms including dysuria, hematuria, nausea, vomiting , fever, chills, back pain, abdominal pain Allergies: Coded Allergies: No Known Allergies (Unverified , 09/02/16) Patient History Past Medical History: see triage record Pertinent Family History: none Last Menstrual Period: 04/29/18 Reviewed Nursing Documentation: PMH: Agreed, PSxH: Agreed Nursing Documentation-PMH Past Medical History: No Stated History Hx Asthma: Yes Review of Systems All Other Systems: negative except mentioned in HPI Physical Exam Vital Signs Date Time Temp Pulse Resp B/P (MAP) Pulse Ox O2 Delivery O2 Flow Rate FiO2 06/17/17 18:17 98.1 76 14 104/65 99 Room Air Sp02 EP Interpretation: reviewed, normal General Appearance: no apparent distress, alert, GCS 15, non-toxic Head: normocephalic, atraumatic Eyes: bilateral eye normal inspection, bilateral eye PERRL ENT: hearing grossly normal, normal pharynx, no angioedema, normal voice Neck: full range of motion, supple/symm/no masses Gastrointestinal: normal bowel sounds, non tender, soft, non-distended, no guarding, no rebound Genitourinary: normal inspection, no CVA tenderness Musculoskeletal: back normal, gait/station normal, normal range of motion, non- tender Neurologic: alert, oriented x3, responsive, motor strength/tone normal, sensory intact, speech normal Psychiatric: judgement/insight normal, memory normal, mood/affect normal, no suicidal/homicidal ideation Skin: normal color, no rash, warm/dry, well hydrated Medical Decision Making PA Attestation Dr. Malin is my supervising physician. Patient management was discussed with my supervising physician Diagnostic Impression: Primary Impression: Vaginitis Qualified Codes: N76.0 - Acute vaginitis ER Course The patient is a 27-year-old female presenting for possible vaginal infection Differential diagnosis considered but not limited to: UTI, vaginitis, pyelonephritis, pyelonephrosis, PID, ectopic PE: Vitals WNL. NAD. Abdomen: Normal appearance. Non distended. No ecchymosis. Normal BS. Non TTP. No McBurney point tenderness. No guarding. No CVA tenderness UA unremarkable. Neg preg Pt will be DC'ed home with prescription for flagyl and will FU with PMD. ER precautions given Laboratory Tests Test 06/17/17 18:28 Urine Color Pale yellow Urine Appearance Slightly cloudy Urine pH 7 (4.5-8.0) Urine Specific [place] 1.015 (1.005-1.035) Urine Protein Negative (NEGATIVE) Urine Glucose (UA) Negative (NEGATIVE) Urine Ketones Negative (NEGATIVE) Urine Occult Blood Negative (NEGATIVE) Urine Nitrite Negative (NEGATIVE) Urine Bilirubin Negative (NEGATIVE) Urine Urobilinogen Normal MG/DL (0.0-1.0) Urine Leukocyte Esterase 3+ (NEGATIVE) H Urine RBC 0-2 /HPF (0 - 2) Urine WBC 10-15 /HPF (0 - 2) H Urine Squamous Epithelial Cells Many /LPF (NONE/OCC) H Urine Bacteria Few /HPF (NONE) Urine HCG, Qualitative Negative Lab Results Impression consistent with BV. No nitrites Last Vital Signs Date Time Temp Pulse Resp B/P (MAP) Pulse Ox O2 Delivery O2 Flow Rate FiO2 06/17/17 19:30 98.2 78 14 111/65 100 Room Air Status: improved Disposition: HOME, SELF-CARE Condition: Improved Scripts Metronidazole* (FLAGYL*) 500 Mg Tablet 500 MG ORAL BID, #14 TAB 0 Refills Prov: MARCY PINEDO 06/17/17 Referrals: NON PHYSICIAN (PCP) Patient Instructions: Bacterial Vaginosis Additional Instructions: I discussed my findings with the patient. All questions and concerns have been answered. Treatment and medication compliance have been addressed. I advised the patient that they need to follow up with PMD in 3-5 days. Return to ED if symptoms worsen, new symptoms arise, or if needed for any reason. Patient verbalized understanding of discharge instructions. MARCY PINEDO Jun 17, 2017 22:07
== END 2017-06-17 19:30 | disposition home or self-care (01) ==
LOC: EMR 18:25
DX: N76.0 Acute vaginitis (principal); J45.909 Unspecified asthma, uncomplicated
CPT/HCPCS: 81003; 81025; 87086; 87181; 99283

== ENCOUNTER 2017-06-18 22:55 | Emergency (ER) | payer OTHER, MEDICAID ==
[~2017-06-18] VITALS: Ht 165.1 cm; Wt 95.3 kg
[2017-06-18 23:12] VITALS: BP 118/77
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
[2017-06-19] MEDS ORDERED: IBUPROFEN600 MG ORAL (00:15)
[2017-06-19 00:25] VITALS: BP 118/77
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
== END 2017-06-19 00:26 | disposition home or self-care (01) ==
LOC: EMR 23:20
DX: S00.83XA Contusion of other part of head, initial encounter (principal); Y04.2XXA Assault by strike against or bumped into by another person, initial encounter; Y92.89 Other specified places as the place of occurrence of the external cause; R51 Headache; J45.909 Unspecified asthma, uncomplicated
CPT/HCPCS: 70450; 99283

== ENCOUNTER 2019-01-03 10:18 | Emergency (ER) | payer MEDICAID ==
[~2019-01-03] VITALS: Ht 165.1 cm; Wt 97.5 kg
[~2019-01-03 10:18] MED LIST changes: +BACTRIM DS TAB1 EAC1 ORAL
[2019-01-03 10:26] VITALS: BP 107/74
--- NOTE | 2019-01-03 10:33 | NUR ---
ED Nurse Note: Pt came in due to vaginal spotting x 1 day. Also reports brown vaginal discharge x 1 month. Denies fever and cramping at this time. AAO x4, ambulatory.
--- NOTE | 2019-01-03 10:36 | NUR ---
ED Nurse Note: Collected urine then sent.
--- NOTE | 2019-01-03 10:46 | Emergency Room Report ---
History of Present Illness General Chief Complaint: Vaginal Source: Patient Present Illness HPI 28-year-old female history of ectopic presents with spotting that started 2 days prior to arrival, no aggravating or alleviating factors symptoms are mild she noticed that there was spotting, she denies any chest pain shortness of breath, no lightheadedness, no nausea vomiting, abdominal pain. Patient presents for evaluation Allergies: Coded Allergies: No Known Allergies (Unverified , 09/02/16) Patient History Past Medical History: see triage record Last Menstrual Period: 12/23/18 Reviewed Nursing Documentation: PMH: Agreed; PSxH: Agreed Nursing Documentation-PM Past Medical History: No Stated History Hx Asthma: Yes Review of Systems All Other Systems: negative except mentioned in HPI Physical Exam Vital Signs Date Time Temp Pulse Resp B/P (MAP) Pulse Ox O2 Delivery O2 Flow Rate FiO2 01/03/19 10:26 97.5 94 18 107/74 (85) 97 Room Air Sp02 EP Interpretation: reviewed, normal General Appearance: well appearing, no apparent distress, alert Head: normocephalic, atraumatic Eyes: bilateral eye PERRL, bilateral eye EOMI ENT: uvula midline, moist mucus membranes Neck: supple, thyroid normal, supple/symm/no masses Respiratory: lungs clear, no respiratory distress, no retraction, no accessory muscle use Cardiovascular #1: normal peripheral pulses, regular rate, rhythm, no edema, no gallop, no murmur Gastrointestinal: non tender, soft, no guarding, no rebound Genitourinary: other - Caddy/Caddie Supervisor Renetta RN 1 no CMT, scant blood in the vaginal vault, unremarkable exam, no adnexal tenderness no discharge Musculoskeletal: normal inspection Neurologic: alert, oriented x3 Psychiatric: mood/affect normal Skin: no rash, warm/dry Medical Decision Making Diagnostic Impression: Primary Impression: Vaginal bleeding ER Course 28-year-old female presents with scant vaginal bleeding, will evaluate for , low suspicion for ectopic, patient states she is 2 weeks early from her. Generally bleeds every 4 weeks, her last bleeding episode was 2 weeks prior to arrival. Patient most likely presents with early. Versus ectopic versus , will obtain a test, vaginal exam unremarkable. 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 Patient Instructions: Dysfunctional Uterine Bleeding, Menstruation Additional Instructions: The patient was provided with discharge instructions, notified to follow-up with a primary care doctor and or specialist in the next 24-48 hours, and to return to the ED if they have worsening of their symptoms. Please note that this report is being documented using [employer] technology. This can lead to erroneous entry secondary to incorrect interpretation by the dictating instrument. Srinivasan Rubin MD Jan 03, 2019 10:46
[2019-01-03 11:23] VITALS: BP 112/79
--- NOTE | 2019-01-03 11:23 | NUR ---
ER DISCHARGE NOTE: Patient is cleared to be discharged per ERMD, pt is aox4, on room air, with stable vital signs. pt was given dc instructions, pt was able to verbalize understanding, pt id band removed without complications. pt is able to ambulate with steady gait. pt took all belongings.
== END 2019-01-03 11:23 | disposition home or self-care (01) ==
LOC: EMR 10:30
DX: N93.9 Abnormal uterine and vaginal bleeding, unspecified (principal)
CPT/HCPCS: 81025; 99282